=== PATIENT | male | born 1980 | race Caucasian/White ===

== ENCOUNTER 2018-10-04 10:54 | Emergency (ER) | payer MEDICAID ==
[~2018-10-04] VITALS: Ht 167.6 cm; Wt 136.1 kg
[2018-10-04 11:06] VITALS: BP_SYST 151
[2018-10-04] MEDS ORDERED: KETOROLAC TROMETHAMINE 60 MG/2 ML VIAL IM ONE (11:45)
[2018-10-04] MEDS ORDERED: SULFAMETHOXAZOLE/TRIMETHOPR DS 1 TABLET PO ONE (11:45)
[2018-10-04 12:15] VITALS: BP_SYST 148
== END 2018-10-04 12:15 | disposition home or self-care (01) ==
LOC: SED 10:54
DX: M79.604 Pain in right leg (principal); E11.9 Type 2 diabetes mellitus without complications; R03.0 Elevated blood-pressure reading, without diagnosis of hypertension
CPT/HCPCS: 82962; 96372; 99283; J1885

== ENCOUNTER 2020-01-14 19:37 | Emergency (ER) | payer SELFPAY ==
[~2020-01-14] VITALS: Ht 165.1 cm; Wt 113.4 kg
[2020-01-14 19:40] VITALS: BP_SYST 161
--- NOTE | 2020-01-14 19:40 | NUR ---
Patient triaged and placed in waiting room. VSS and patient appears in no acute distress at this time. Accompanied by self, awaiting available bed, and MD notified of need for MSE.
--- NOTE | 2020-01-14 21:00 | NUR ---
call pt name in the wr.no answer
--- NOTE | 2020-01-14 21:05 | NUR ---
call pt name in the wr.no answer
--- NOTE | 2020-01-14 21:10 | NUR ---
call pt name in the wr.no answer
== END 2020-01-14 21:10 | disposition left against medical advice (07) ==
LOC: SED 19:37
DX: K08.89 Other specified disorders of teeth and supporting structures (principal); R22.0 Localized swelling, mass and lump, head; Z53.21 Procedure and treatment not carried out due to patient leaving prior to being seen by health care provider

== ENCOUNTER 2022-05-28 13:14 | Emergency (ER) | payer MEDICAID ==
[~2022-05-28] VITALS: Ht 165.1 cm; Wt 108.9 kg
[2022-05-28 13:34] VITALS: BP_SYST 161
--- NOTE | 2022-05-28 13:45 | NUR ---
Patient to ER bed 4 for evaluation. Side rails up. Report given to Keith FORD.
--- NOTE | 2022-05-28 14:10 | NUR ---
ER at bedside examining patient.
[2022-05-28] MEDS ORDERED: VANCOMYCIN HCL 1 MG in D5W 250 ML IV ONE (14:30)
[2022-05-28] MEDS ORDERED: KETOROLAC TROMETHAMINE 30 MG VIAL IVP ONE (14:30)
[2022-05-28] MEDS ORDERED: PIPERACILLIN/TAZO 3.375 GM in NS 50 ML IV ONE (14:30)
[2022-05-28] MEDS ORDERED: NACL 0.9% 1,000 ML IV SCH (14:30)
--- NOTE | 2022-05-28 15:09 | NUR ---
# 22 gauge angiocath placed to Left AC. Use of asceptic technique. Opsite placed over site. Blood return noted. Blood for lab drawn from site. Flushed with 10 cc of normal saline. No evidence of infiltration noted. Patient tolerated well.
[2022-05-28] MEDS ORDERED: PIPERACILLIN/TAZOBACTAM 3.375 GM/VIAL (ZOSYN) IV ONE (15:22)
[2022-05-28 15:28] LABS: BASOPHILS # (AUTO) 0.1 K/uL (0.0-0.2); BASOPHILS % (AUTO) 0.7 % (0.0-2.0); EOSINOPHILS # (AUTO) 0.3 K/uL (0.0-0.4); EOSINOPHILS % (AUTO) 3.7 % (0.0-4.0); HEMATOCRIT 42.1 % (36-54); HEMOGLOBIN 14.3 g/dL (14.0-18.0); LYMPHOCYTES # (AUTO) 1.5 K/uL (1.0-5.5); MEAN CORPUSCULAR HEMOGLOBIN 29 pg (27-31); MEAN CORPUSCULAR HGB CONC 34 % (32-36); MEAN CORPUSCULAR VOLUME 84 fL (79.0-98.0); MONOCYTES # (AUTO) 1.1 K/uL (0.0-1.0); NEUTROPHILS # (AUTO) 4.9 K/uL (1.8-7.7); NEUTROPHILS % (AUTO) 62.6 % (40.0-70.0); PLATELET COUNT (AUTO) 216 K/uL (130-430); RED BLOOD CELL COUNT(AUTO) 5.02 MIL/uL (4.2-6.2); RED CELL DISTRIBUTION WIDTH 13.9 % (9.0-15.0); WHITE BLOOD COUNT (AUTO) 7.8 K/uL (4.8-10.8)
[2022-05-28 15:39] LABS: CREATININE 1.01 mg/dL (0.55-1.30); POTASSIUM 3.6 mmol/L (3.5-5.1)
[2022-05-28 16:28] LABS: CALCIUM 8.4 mg/dL (8.4-11.0)
[2022-05-28] MEDS ORDERED: VANCOMYCIN HCL 1000 MG/VIAL IV ONE (16:29)
[2022-05-28] MEDS ORDERED: CLIN-142 PO (16:49)
--- NOTE | 2022-05-28 17:55 | NUR ---
A/OX4 VSS VERBALIZED UNDERSTANDING OF DC INSTRUCTIONS, ALL QUESTIONS ANSWERED, AMBULATED WITH STEADY GAIT.
[2022-05-28 17:57] VITALS: BP_SYST 131
--- NOTE | 2022-05-28 18:00 | NUR ---
Patient given written and verbal discharge instructions and verbalizes understanding. ER MD discussed with patient the results and treatment provided. Patient in stable condition. IV catheter removed intact and dressing applied, no active bleeding. Rx of given. Patient educated on pain management and to follow up with PMD. Pain Scale . Opportunity for questions provided and answered. Medication side effect fact sheet provided.
== END 2022-05-28 17:57 | disposition home or self-care (01) ==
LOC: SED 13:14
DX: L03.116 Cellulitis of left lower limb (principal)
CPT/HCPCS: 99284; 96365; 96366; 96375; 80048; 85025; 36415; 73610; 73630; 96368; J1885; J2543; J3370

== ENCOUNTER 2023-04-19 18:48 | Emergency (ER) | payer MEDICAID ==
[~2023-04-19] VITALS: Ht 167.6 cm; Wt 117.9 kg
[~2023-04-19 18:48] MED LIST: CLIN-142 PO
--- NOTE | 2023-04-19 19:50 | NUR ---
DR. PEMBERTON WITH PATIENT IN [facility] FOR MSE.
[2023-04-19 19:53] VITALS: BP_SYST 146
--- NOTE | 2023-04-19 19:55 | NUR ---
Patient triaged and placed in waiting room. VSS and patient appears in no acute distress at this time. Accompanied by SELF, awaiting available bed, and MD notified of need for MSE.
--- NOTE | 2023-04-19 20:19 | NUR ---
Note undone in EDM - 04/19/23 at 2038 by [email or web address] Patient given written and verbal discharge instructions and verbalizes understanding. ER DR. PEMBERTON discussed with patient the results and treatment provided. Patient in stable condition. ID arm band removed. Rx of AMLODIPINE given. Patient educated on pain management and to follow up with PMD. Pain Scale 0. Opportunity for questions provided and answered. Medication side effect fact sheet provided.
[2023-04-19] MEDS ORDERED: IBUPROFEN 800 MG TABLET PO ONE (20:30)
[2023-04-19] MEDS ORDERED: HYDROcodone/ACETAMIN 5-325 MG TAB (NORCO/ VICODIN) PO ONE (20:30)
[2023-04-19] MEDS ORDERED: HYDR-3917 PO ×3 (20:35→21:51)
[2023-04-19] MEDS ORDERED: IBUP-1969 PO ×3 (20:35→21:51)
[2023-04-19] MEDS ORDERED: AUG875 PO ×3 (20:35→21:51)
[2023-04-19] MEDS ORDERED: KETOROLAC TROMETHAMINE 60 MG/2 ML VIAL IM ONE (21:15)
[2023-04-19 21:16] VITALS: BP_SYST 146
--- NOTE | 2023-04-19 21:16 | NUR ---
Patient given written and verbal discharge instructions and verbalizes understanding. ER DR. PEMBERTON discussed with patient the results and treatment provided. Patient in stable condition. ID arm band removed. Rx of MOTRIN, AUGMENTIN, NORCO given. Patient educated on pain management and to follow up with PMD. Pain Scale 3. Opportunity for questions provided and answered. Medication side effect fact sheet provided.
== END 2023-04-19 21:16 | disposition home or self-care (01) ==
LOC: SED 18:48
DX: K04.7 Periapical abscess without sinus (principal); K08.89 Other specified disorders of teeth and supporting structures; E11.9 Type 2 diabetes mellitus without complications; Z79.899 Other long term (current) drug therapy
CPT/HCPCS: 99283; 96372; J1885

== ENCOUNTER 2024-05-31 20:37 | Emergency (ER) | payer MEDICAID ==
[~2024-05-31] VITALS: Ht 167.6 cm; Wt 122.5 kg
[~2024-05-31 20:37] MED LIST changes: +AUG875 PO; +CEPH-548 PO; +HYDR-3917 PO; +IBUP-1969 PO; +IBUP-1971 PO
[2024-05-31 21:00] VITALS: BP_SYST 183; PULSE 106; RESP 19; TEMP 97; O2SAT 95
[2024-05-31] MEDS: LIDOCAINE VISCOUS 2%, 15 ML UDC MM ONE (22:51)
[2024-05-31] MEDS: KETOROLAC TROMETHAMINE 30 MG VIAL IM ONE (22:51)
[2024-05-31] MEDS: CHLORHEXIDINE GLUCONATE 15 ML/DOSE, 480 ML MM STA (22:52)
[2024-05-31] MEDS: ACETAMINOPHEN 500 MG TABLET PO ONE (22:52)
[2024-05-31] MEDS: PENICILLIN V POTASSIUM 250 MG TABLET PO ONE (23:03)
[2024-05-31] MEDS: AMOXICILLIN/POTASSIUM CLAV 875 MG TABLET PO ONE (23:07)
[2024-05-31] MEDS ORDERED: AUG875 PO (23:13)
[2024-05-31 23:40] VITALS: BP_SYST 183; PULSE 106; RESP 19; TEMP 97; O2SAT 95
== END 2024-05-31 23:38 | disposition home or self-care (01) ==
LOC: SED 20:37
DX: K08.89 Other specified disorders of teeth and supporting structures (principal); K04.7 Periapical abscess without sinus; E11.9 Type 2 diabetes mellitus without complications; Z79.899 Other long term (current) drug therapy; Z79.2 Long term (current) use of antibiotics
CPT/HCPCS: 99284; 96372; J1885; 99283; J2001